=== PATIENT | female | born 1990 | race Two or more races ===

== ENCOUNTER 2019-12-01 09:26 | Emergency (ER) | payer OTHER ==
[~2019-12-01] VITALS: Ht 160 cm; Wt 56.8 kg
[2019-12-01] MEDS ORDERED: IBUPROFEN 600 MG TABLET PO ONE (10:00)
[2019-12-01 11:38] VITALS: BP 117/65
== END 2019-12-01 11:41 | disposition home or self-care (01) ==
LOC: EMS 09:27
DX: S93.401A Sprain of unspecified ligament of right ankle, initial encounter (principal); X50.1XXA Overexertion from prolonged static or awkward postures, initial encounter; Y93.89 Activity, other specified; Y92.89 Other specified places as the place of occurrence of the external cause; Y99.8 Other external cause status
CPT/HCPCS: 73610-TC; Z7502; Z7610